=== PATIENT | female | born 1975 | race Caucasian/White ===

== ENCOUNTER → 2021-05-29 | Outpatient (CLI) | payer OTHER | LOC: M.RAD 09:43 | PROVIDERS: ATTEND Internal Medicine | DX: Z12.31 Encounter for screening mammogram for malignant neoplasm of breast (principal); N64.89 Other specified disorders of breast ==

== ENCOUNTER → 2021-06-06 | Outpatient (CLI) | payer OTHER ==
[2021-06-06 09:21] LABS: HEMOGLOBIN 13.7 gm/dL (12.0-15.0); MCH 31.1 pg (26.0-34.0); MCHC 35.1 g/dL (28.0-37.0); MCV 88.5 fL (80.0-100.0); MPV 9.3 fl. (7.2-11.1); RBC 4.41 mil/uL (4.20-5.00); RDW-CV 12.5 % (10.5-14.5); WBC 5.1 thou/uL (4.0-11.0)
[2021-06-06 09:42] LABS: CALCIUM 9.9 mg/dL (8.5-10.1); POTASSIUM 4.5 mmol/L (3.5-5.1); TOTAL BILIRUBIN 0.3 mg/dL (<0.1-1.0); TOTAL PROTEIN 7.2 g/dL (6.4-8.2)
--- NOTE | 2021-06-08 13:09 | PATH ---
[address] [address] PATHOLOGY RPT PROCEDURE Name: SOLA RAMOS Room: [facility]#: [id number] Admission: 06/06/21 Date of : 73 Discharge: Report #: [id number] Path Case #: [id number] [facility] Accession Number: [id number] . 01 Material submitted: . breast - RIGHT BREAST CALCIFICATIONS. Modifiers: right . 01 Clinical history: . RIGHT BREAST STEREOTACTIC BIOPSY FOR CALCIFICATIONS . 02 Diagnosis: Right breast calcifications, stereotactic biopsy: - INFILTRATING DUCTAL ADENOCARCINOMA, HIGH-GRADE, WITH MINOR MUCINOUS COMPONENT, SPANNING AT LEAST 15 MM, ASSOCIATED WITH CALCIFICATIONS. - DUCTAL CARCINOMA IN SITU (DCIS), NUCLEAR GRADE III, COMEDO AND CRIBRIFORM TYPES, WITH CALCIFICATIONS. SEE COMMENT. (TITUS:desmond; 06/07/2021) . . Surgical Pathology Cancer Case Summary . Procedure ___ Other: Stereotactic biopsy . Specimen Laterality ___ Right . Tumor Site ___ Not specified . Tumor Size ___ Greatest dimension of largest invasive focus >1 mm: at least 15 mm . Histologic Type ___ Invasive carcinoma of no special type (ductal) with minor mucinous component . Histologic Grade (Bryant Histologic Score) Glandular (Acinar)/Tubular Differentiation ___ Score 3 (<10% of tumor area forming glandular/tubular structures) . Nuclear Pleomorphism ___ Score 3 (vesicular nuclei, often with prominent nucleoli, exhibiting marked variation in size and shape, occasionally with very large and bizarre forms) . Mitotic Rate ___ Score 3 [place] [address] PATHOLOGY RPT PROCEDURE Name: SOLA RAMOS [id number] Admission: 06/06/21 Date of : 73 Discharge: Report #: [id number] Path Case #: [id number] Overall Grade ___ Grade 3 (scores of 8 or 9) . Ductal Carcinoma In Situ (DCIS) ___ Present . Architectural Patterns ___ Comedo ___ Cribriform . Nuclear Grade ___ Grade III (high) . Necrosis ___ Present, central (expansive "comedo" necrosis) . Lymphovascular Invasion ___ Not identified . Microcalcifications ___ Present in DCIS ___ Present in invasive carcinoma . Ancillary Studies Biomarker Studies ___ Pending on block A1 . (TITUS:desmond; 06/07/2021) . [facility] 06/08/2021 1210 Local . 02 Comment: Approximately 90% of the submitted tissues show involvement by invasive tumor. Breast tumor profile studies are pending on A1 and will be the subject of an addendum report. Reviewed with Dr. Rafael Rodriguez on 06/08/2021 who agrees with the diagnosis. Radha (acting [facility] breast navigator) notified at approximately 1210 on 06/08/2021. (TITUS:desmond; 06/07/2021) . 02 Electronically signed: . Emanuel Mccall MD, Pathologist NPI- [id number] . 01 Gross description: . Received in formalin labeled "Sola Ramos and right breast calcifications". Received are multiple white-yellow fibroadipose breast tissue cores ranging from 1.8-2.1 cm in length and 0.2-0.3 cm in diameter. The specimen is entirely submitted in cassettes A1-A3. [place] [address] PATHOLOGY RPT PROCEDURE Name: SOLA RAMOS Room: [facility]#: [id number] Admission: 06/06/21 Date of : 73 Discharge: Report #: [id number] Path Case #: [id number] collected 06/06/2021 at 10:30 AM and placed into formalin at 10:40 AM. The specimen will be removed from formalin on 06/06/2021 at 11:40 PM. The specimen will be in formalin more than 6 hours and less than 72 hours.(J; 06/06/2021) J/J 06/07/2021 1604 Local . 02 Pathologist provided ICD-10: C50.911, D05.11 . 02 CPT . 920275 Specimen Comment: A courtesy copy of this report has been sent to [phone] Specimen Comment: [phone] Specimen Comment: Report sent to / DR WHIPPLE Performed at: 01 [facility] [id number] [address], [place] [id number] MD Linus Maldonado MD Phone: [phone] Performed at: 02 [facility] [address], [place], [place] [id number] MD Emanuel Mccall MD Phone: [phone]
== END | disposition home or self-care (01) ==
LOC: M.RAD 08:00 → M.ULTRA 08:30
PROVIDERS: ATTEND Internal Medicine
DX: R92.1 Mammographic calcification found on diagnostic imaging of breast (principal); C50.911 Malignant neoplasm of unspecified site of right female breast

== ENCOUNTER → 2021-06-12 | Outpatient (CLI) | payer OTHER ==
[~2021-06-12] MED LIST: DIPHENHIST50 MG PO; FISH OIL 1,0001 EAC9 PO; IBUPROFEN 200200 M1 PO; NEURONTIN300 MG PO; OXYCODONE HCL 55 MG PO; SUPER THERAVIT1 EACH PO; VITAMIN B6100 MG/2.5; VITAMIN C100 MG
== END ==
LOC: M.MRI 11:23
PROVIDERS: ATTEND Nurse Practitioner
DX: R92.2 Inconclusive mammogram (principal); R92.8 Other abnormal and inconclusive findings on diagnostic imaging of breast; Z87.898 Personal history of other specified conditions

== ENCOUNTER → 2021-06-19 | Day surgery (SDC) | payer OTHER ==
--- NOTE | ~2021-06-19 | OP ---
[address] [address] OPERATIVE REPORT Name: PATITO RAMOS Britt Room: [facility]#: [id number] Admission: 06/19/21 Attend Phys: Loli Barajas MD Discharge: Date of : 73 Report #: [id number] THIS REPORT FOR: cc: Sylvia Schumacher Jacqueline D. FNP Beahm, Mindi S. MD ~ DATE OF SURGERY: 06/19/2021 PREOPERATIVE DIAGNOSIS: Malignant neoplasm, overlapping sites, right female breast. POSTOPERATIVE DIAGNOSIS: Malignant neoplasm, overlapping sites, right female breast. PROCEDURE: Left subclavian vein port placement with fluoroscopic guidance. SURGEON: Loli Barajas MD DOCTOR OF NAPRAPATHIC MEDICINE: None. ANESTHESIA: General anesthesia. ESTIMATED BLOOD LOSS: 3 mL. COMPLICATIONS: None. FINDINGS: Tip in the SVC. IMPLANTS: Bard PowerPort. DISPOSITION: Stable to PACU. INDICATIONS: The patient is a 45-year-old female with a palpable mass in the right breast with subsequent imaging on 05/29/2021 showing a region of calcifications in the inferior right breast and a region of dense breast tissue. A stereotactic biopsy on 06/06/2021 showed grade 3 invasive ductal carcinoma, ER 95%, AK 4%, HER-2 is equivocal with the pending FISH, Ki-67 was 65%. MRI on 06/12 confirmed a 2.7 cm irregular enhancing mass surrounding the biopsy clip and adjacent non-mass enhancement extending posteriorly for an additional distance of 4 cm and an additional solid mass 3 cm posterior to the biopsy clip. Given the large mass, her high Ki-67 and high-grade tumor, recommendation was that no matter results of her ultimate HER-2 status, chemotherapy would be indicated and recommended in a neoadjuvant manner. Therefore, risks, and benefits for port were discussed with the patient and delineated in H and P and [place] [address] OPERATIVE REPORT Name: PATITO RAMOS Britt Room: [facility].#: [id number] Admission: 06/19/21 Attend Phys: Loli Barajas MD Discharge: Date of : 73 Report #: [id number] DESCRIPTION OF PROCEDURE: The patient was brought to the operating room after informed consent had been obtained. She was placed under general anesthesia in the supine position. Bilateral arms were tucked, shoulder roll was placed and she was placed in slight Trendelenburg position. Bilateral chest and neck were then prepped and draped in normal sterile manner. The left subclavian vein was accessed on the first attempt with the needle, the guidewire was then inserted and fluoroscopy confirmed appropriate placement in the SVC. Local anesthesia with 0.5% Marcaine plain was then used to create in the region of the proposed port pocket. Skin incision was then made in this region with a knife incorporating the needle stick site. This was deepened into the subcutaneous tissues using the Bovie electrocautery. A pocket was created of adequate size for the MediPort using a combination of Bovie cautery and blunt dissection. Once this pocket was created, the dilator and sheath were advanced under Seldinger technique and under direct fluoroscopic visualization over the guidewire. The guidewire and dilator were then removed. The MediPort tubing was introduced through the sheath. The breakaway sheath was removed and the tubing was trimmed to the appropriate length, all under fluoroscopic visualization. The tubing was then affixed to the MediPort device. It was placed in the previously created pocket. It aspirated and flushed without difficulty with injectable saline. It was then locked with 5 mL of a heparin lock solution. The deep dermal layers were closed with interrupted 3-0 Vicryl sutures and the skin was closed with 4-0 Monocryl in a subcuticular manner. The wound was then dressed with Dermabond dressing. The patient tolerated the procedure well. Sponge, lap and needle counts were correct x 2 at the end of the procedure. She was transferred to recovery in stable condition. Post-procedure chest x-ray will be obtained in recovery. By: [id number] Barajas MD /elvia
== END | disposition home or self-care (01) ==
LOC: M.SUR 05:48
PROVIDERS: ATTEND Surgery
DX: Z45.2 Encounter for adjustment and management of vascular access device (principal); C50.811 Malignant neoplasm of overlapping sites of right female breast; R92.1 Mammographic calcification found on diagnostic imaging of breast; Z98.890 Other specified postprocedural states; Z79.899 Other long term (current) drug therapy; Z88.8 Allergy status to other drugs, medicaments and biological substances; Z20.822 Contact with and (suspected) exposure to COVID-19

== ENCOUNTER → 2021-06-28 | Outpatient (CLI) | payer OTHER ==
--- NOTE | 2021-06-28 11:08 | 2DMMODE ---
[place] [address] 2 D/M-MODE ECHOCARDIOGRAM Name: PATITO RAMOS Room: [facility]#: [id number] Admission: 06/28/21 Attend Phys: Thomas Andrea, Discharge: Date of : 73 Date of Service: 06/28/21 1108 Report #: [id number] THIS REPORT FOR: cc: Sylvia Schumacher Jacqueline D. FNP Holkins, John M. MD [facility] ~ APPROVED REPORT Study performed: 06/28/2021 09:41:05 EXAM: Comprehensive 2D, Doppler, and color-flow Echocardiogram Patient Location: Out-Patient BSA: 1.89 HR: 88 bpm BP: 100/70 mmHg Other Information Study Quality: Good Indications Pre-Chemo 2D Dimensions IVSd: 10.15 (7-11mm) LVOT Diam: 19.28 (18-24mm) LVDd: 41.01 mm PWd: 10.81 (7-11mm) Ascending Ao: 28.08 (22-36mm) LVDs: 23.78 (25-40mm) Aortic Root: 23.73 mm Volumes Left Atrial Volume (Systole) LA ESV Index: 11.40 mL/m2 Aortic Valve AoV Peak Jacek.: 1.33 m/s AO Peak Gr.: 7.03 mmHg LVOT Max P.34 mmHg AO Mean Gr.: 3.53 mmHg LVOT Mean P.71 mmHg LVOT Max V: 0.91 m/s AO V2 VTI: 23.81 cm LVOT Mean V: 0.61 m/s MARLON (VTI): 2.26 cm2 LVOT V1 VTI: 18.41 cm Mitral Valve E/A Ratio: 0.94 [place] [address] 2 D/M-MODE ECHOCARDIOGRAM Name: PATITO RAMOS Room: [facility]#: [id number] Admission: 06/28/21 Attend Phys: Thomas Andrea, Discharge: Date of : 73 Date of Service: 06/28/21 1108 Report #: [id number] MV Decel. Time: 217.55 ms MV E Max Jacek.: 0.62 m/s MV PHT: 63.09 ms MVA (PHT): 3.49 cm2 TDI E/Lateral E': 5.64 E/Medial E': 5.64 Medial E' Jacek.: 0.11 m/s Lateral E' Jacek.: 0.11 m/s Pulmonary Valve PV Peak Jacek.: 0.96 m/s PV Peak Gr.: 3.67 mmHg Left Ventricle The left ventricle is normal size. There is normal LV segmental wall motion. There is normal left ventricular wall thickness. Left ventricular systolic function is normal. The left ventricular ejection fraction is within the normal range. LVEF is 55-60%. The left ventricular diastolic function is normal. Right Ventricle The right ventricle is normal size. The right ventricular systolic function is normal. Atria The left atrium size is normal. The right atrium size is normal. Aortic Valve The aortic valve is normal in structure. No aortic regurgitation is present. There is no aortic valvular stenosis. Mitral Valve The mitral valve is normal in structure. There is no mitral valve regurgitation noted. No evidence of mitral valve stenosis. Tricuspid Valve The tricuspid valve is normal in structure. There is no tricuspid valve regurgitation noted. Pulmonic Valve The pulmonary valve is normal in structure. There is no pulmonic valvular regurgitation. Great Vessels The aortic root is normal in size. IVC [place] [address] 2 D/M-MODE ECHOCARDIOGRAM Name: RACHELPATITO Britt Room: [facility]#: [id number] Admission: 06/28/21 Attend Phys: Thomas Andrea, Discharge: Date of : 73 Date of Service: 06/28/21 1108 Report #: [id number] collapses >50% with inspiration. Pericardium There is no pericardial effusion. <Conclusion> The left ventricle is normal size. There is normal left ventricular wall thickness. Left ventricular systolic function is normal. The left ventricular ejection fraction is within the normal range. LVEF is 55-60%. The left ventricular diastolic function is normal. The right ventricle is normal size. The left atrium size is normal. The aortic valve is normal in structure. The mitral valve is normal in structure. The tricuspid valve is normal in structure. IVC is normal in size and collapses >50% with inspiration. There is no pericardial effusion. There is normal LV segmental wall motion. <ELECTRONICALLY SIGNED> By: Rashad Dc MD, FACC 06/28/21 1108 1108 1108 Rashad Dc MD, FACC /INF
== END ==
LOC: M.CRD 09:00
PROVIDERS: ATTEND Internal Medicine Hematology & Oncology
DX: Z01.419 Encounter for gynecological examination (general) (routine) without abnormal findings (principal); N83.202 Unspecified ovarian cyst, left side; C50.919 Malignant neoplasm of unspecified site of unspecified female breast; N92.6 Irregular menstruation, unspecified; N83.8 Other noninflammatory disorders of ovary, fallopian tube and broad ligament; C50.811 Malignant neoplasm of overlapping sites of right female breast; Z17.1 Estrogen receptor negative status [ER-]; Z17.0 Estrogen receptor positive status [ER+]

== ENCOUNTER → 2021-06-30 | Outpatient (CLI) | payer OTHER ==
--- NOTE | 2021-07-04 18:06 | PATH ---
[address] [address] PATHOLOGY RPT PROCEDURE Name: SOLA RAMOS Room: [facility] Maite#: [id number] Admission: 06/30/21 Date of : 73 Discharge: Report #: [id number] Path Case #: [id number] [facility] Accession Number: [id number] . 01 Material submitted: . lymph node - RIGHT AXILLA LYMPH NODE BIOPSY. Modifiers: right, axilla . 01 Clinical history: . 1.6 X 1.0 X 1.2 FORMALIN TIME IN 09:09 US/ SOFT TISSUE BX/ RT AXILLA . 02 Diagnosis: Right axilla lymph node biopsy: - METASTATIC ADENOCARCINOMA TYPICAL OF BREAST DUCTAL PRIMARY, SPANNING AT LEAST 7 MM, INVOLVING LYMPH NODE. SEE COMMENT. (TITUS:desmond; 07/03/2021) MBJus 07/03/2021 1632 Local . 02 Comment: Properly controlled immunohistochemical stains performed on A3 show the neoplastic cells to have the following characteristics, supporting the diagnosis: . GATA3: positive Estrogen receptor: positive . Approximately 80% of the submitted tissue shows involvement by malignancy. There is no definite evidence of extra rosa maria involvement. A1 through A3 reviewed with Dr. Garcia Boss on 07/04/2021 who agrees with the diagnosis. Discussed with Dr. Rock at approximately 1055 on 07/04/2021. Dr. Andrea notified at approximately 1245 on 07/04/2021. . (TITUS:division director; 07/03/2021) . 02 Electronically signed: . Emanuel Mccall MD, Pathologist NPI- [id number] . 01 Gross description: . The specimen is received in formalin, labeled "Sola Philip, right axilla lymph node biopsy". Received are three needle cores of pale richards tissue measuring 1.0 x 0.6 x 0.2 cm in aggregate dimensions. The specimen is submitted entirely in cassettes A1 through A3. (CAA; 06/30/2021) QAC/QAC 06/30/2021 1542 Local . 02 Pathologist provided ICD-10: [place] [address] PATHOLOGY RPT PROCEDURE Name: SOLA RAMOS [id number] Admission: 06/30/21 Date of : 73 Discharge: Report #: [id number] Path Case #: [id number] C77.3 . 02 CPT . [id number], [id number], [id number] Specimen Comment: A courtesy copy of this report has been sent to [phone] Specimen Comment: [phone], Specimen Comment: Report sent to DR. BISHOP, DR ROCK / DR GILES Performed at: [address], [place] [id number] MD Linus Maldonado MD Phone: [phone] Performed at: 02 [facility] [address], [place], [place] [id number] MD Emanuel Mccall MD Phone: [phone]
== END | disposition home or self-care (01) ==
LOC: M.ULTRA 08:12
PROVIDERS: ATTEND Internal Medicine Hematology & Oncology
DX: C77.3 Secondary and unspecified malignant neoplasm of axilla and upper limb lymph nodes (principal); R59.0 Localized enlarged lymph nodes; C50.911 Malignant neoplasm of unspecified site of right female breast; Z98.890 Other specified postprocedural states; Z79.899 Other long term (current) drug therapy; Z88.8 Allergy status to other drugs, medicaments and biological substances